=== PATIENT | male | born 1965 | race Caucasian/White ===

== ENCOUNTER 2016-11-25 15:51 | Emergency (ER) | payer OTHER, BC ==
[~2016-11-25] VITALS: Ht 190.5 cm; Wt 120.2 kg
[2016-11-25] MEDS ORDERED: LIDOCAINE 2% 20 ML (XYLOCAINE) VIAL ONE (16:06)
[2016-11-25] MEDS ORDERED: LIDOCAINE 2% 20 ML (XYLOCAINE) VIAL INJ ONE (16:15)
--- NOTE | 2016-11-25 16:42 | ED Upper Extremity ---
General Chief Complaint: Laceration Stated Complaint: L HAND FINGER LAC Nursing Triage Note: c/o laceration to pad of left 4th finger. Pt cut finger on a piece of metal at work Nursing Sepsis Screen: No Definite Risk Source: patient Exam Limitations: no limitations History of Present Illness Time seen by provider: 16:36 Initial Comments Sent to ER from [facility] urgent care with a skin avulsion to the pad of the left ring finger. This occurred while at work at [employer] cutting it on a piece of sheet metal at work. Tetanus is up-to-date in the last 5 years. Onset: just prior to arrival Severity: moderate Pain/Injury Location: left 4th finger Allergies and Home Medications Allergies Coded Allergies: No Known Drug Allergies (Unverified , 11/25/16) Constitutional: see HPI EENTM: see HPI Respiratory: no symptoms reported Cardiovascular: no symptoms reported Genitourinary: no symptoms reported Musculoskeletal: no symptoms reported Skin: no symptoms reported Psychiatric/Neurological: No Symptoms Reported Past Wlkvrmb-[id number]-[id number] Hx Patient Social History Alcohol Use: Denies Use Recreational Drug Use: No Smoking Status: Current Everyday Smoker Recent Foreign Travel: No Contact w/Someone Who Travel: No Recent Infectious Disease Expo: No Recent Hopitalizations: No Physical Abuse Screen: No Sexual Abuse: No Surgeries HX Surgeries: Yes (dental extraction) Respiratory Hx Respiratory Disorders: No Cardiovascular Hx Cardiac Disorders: No Neurological Hx Neurological Disorders: No Reproductive System Hx Reproductive Disorders: No Genitourinary Hx Genitourinary Disorders: No Gastrointestinal Hx Gastrointestinal Disorders: No Musculoskeletal Hx Musculoskeletal Disorders: No Endocrine Hx Endocrine Disorders: No HEENT HX ENT Disorders: No Cancer Hx Cancer: No Psychosocial Hx Psychiatric Problems: No Integumentary HX Skin/Integumentary Disorder: No Blood Transfusions Hx Blood Disorders: No Physical Exam Vital Signs Vital Sign - Last 12Hours 11/25/16 16:15 Temp 98.1 Pulse 80 Resp 16 B/P 113/80 Pulse Ox 99 O2 Delivery Room Air Capillary Refill : Less Than 3 Seconds General Appearance: WD/WN no apparent distress HEENT: PERRL/EOMI normal ENT inspection Neck: non-tender full range of motion Respiratory: no respiratory distress no accessory muscle use Gastrointestinal: normal bowel sounds non tender soft Elbow/Forearm: normal inspection, non-tender, no evidence of injury Wrist: Yes normal inspection, Yes non-tender Hand: Left, laceration (there is a skin avulsion/flap to the pad of the left ring finger. The pad remains attached distally. Depth is to the subcutaneous tissues but there is no visualized bone or tendon and flexion ability to remain intact.) Neurologic/Tendon: normal sensation normal motor functions normal tendon functions Neurologic/Psychiatric: alert normal mood/affect oriented x 3 Skin: normal color warm/dry Laceration Repair : Wound Location: Upper Extremities Wound Length (cm): 2 Wound's Depth, Shape: sub Q Wound Explored: clean Suture: Ethlion Suture Size: 5-0 Number of Sutures: 10 Layer Closure?: 1 Number Deep Layer Sutures: 0 Progress Digital block done using 5 mL of plain 2 percent lidocaine without epinephrine. Wound then scrubbed with chlorhexidine/saline solution and irrigated with 50 mL of the same. The pad/flap of skin was then folded back in place and sutured in place using 10 simple interrupted sutures size 5-0 Ethilon. The pad is blanched appearing compared to surrounding tissues. I did advise the patient this flap may the tissues beneath will granulate in healing by secondary intention if that were the case. He'll return to the emergency room in 10 days to have the stitches removed. Progress/Results/Core Measures Results/Orders My Orders Orders-ZOLTAN STOREY APRN Lidocaine 2% Injection 20 Ml (Xylocaine (11/25/16 16:15) Medications Given in ED Current Medications Medications Dose Ordered Sig/Chevy Route Start Time Stop Time Status Last Admin Dose Admin Lidocaine HCl 20 ml ONCE ONCE INJ 11/25/16 16:15 11/25/16 16:16 DC 11/25/16 16:15 20 ML Vital Signs/I&O Vital Sign - Last 12Hours 11/25/16 16:15 Temp 98.1 Pulse 80 Resp 16 B/P 113/80 Pulse Ox 99 O2 Delivery Room Air Blood Pressure Mean: 91 Departure Impression Impression: Primary Impression: Avulsion of fingertip Qualified Code: S61.209A - Unspecified open wound of unspecified finger without damage to nail, initial encounter Disposition: 01 HOME, SELF-CARE Condition: Stable Departure-Patient Inst. Decision time for Depature: 16:40 Referrals: NO,LOCAL PHYSICIAN (PCP/Family) Primary Care Physician Patient Instructions: Laceration Repair With Stitches (DC) Add. Discharge Instructions: 1. Antibiotic as directed 2. Return to ER for any redness, swelling or intolerable pain or for any concerning appearance of the wound 2. Change the dressing daily. Keep clean dry and covered today. Starting tomorrow you may wash it gently twice daily living water run over it but do not scrub. Keep it covered with the protector while you're at work 3. Return to the emergency room in 10 days to have the stitches removed in no charge All discharge instructions reviewed with patient and/or family. Voiced understanding. Scripts Cephalexin (Keflex)500 Mg Ethaury331 Mg PO Q4H #28 CAP Prov:ZOLTAN STOREY APRN 11/25/16 Hydrocodone/Acetaminophen ([place] 5-325 Tablet)1 Each Tablet1 Each PO Q4H PRN PAIN #10 TAB Prov:ZOLTAN STOREY APRN 11/25/16 ZOLTAN STOREY APRN Nov 25, 2016 16:41
[2016-11-25] MEDS ORDERED: HYDR-757 PO (16:43)
[2016-11-25] MEDS ORDERED: CEPH-507 PO (16:43)
[2016-11-25 17:05] VITALS: BP 110/80
== END 2016-11-25 17:05 | disposition home or self-care (01) ==
LOC: ER 15:54
DX: S61.215A Laceration without foreign body of left ring finger without damage to nail, initial encounter (principal); F17.210 Nicotine dependence, cigarettes, uncomplicated; W45.8XXA Other foreign body or object entering through skin, initial encounter; Y92.59 Other trade areas as the place of occurrence of the external cause; Y99.0 Civilian activity done for income or pay
CPT/HCPCS: 12001; 29130

== ENCOUNTER 2016-12-04 15:56 | Emergency (ER) | payer OTHER, BC ==
[~2016-12-04] VITALS: Ht 182.9 cm; Wt 102.1 kg
[~2016-12-04 15:56] MED LIST: CEPH-507 PO; HYDR-757 PO
[2016-12-04 16:35] VITALS: BP 147/91
== END 2016-12-04 16:35 | disposition home or self-care (01) ==
LOC: EDUNIT# 15:56 → EEVIPCON 15:56 → ER 15:56
DX: S61.215D Laceration without foreign body of left ring finger without damage to nail, subsequent encounter (principal)

== ENCOUNTER 2016-12-09 16:38 | Emergency (ER) | payer OTHER, BC ==
[~2016-12-09] VITALS: Ht 190.5 cm; Wt 120.2 kg
--- OUTSIDE RECORDS SUMMARY | 2016-12-09 16:42 | XMS REPORT | Continuity of Care Document ---
Author Author [facility] Organization [facility] Address Unknown Phone Unavailable Care Team Providers Care General Scrap Worker Name Role Phone NO, LOCAL PHYSICIAN PCP Unavailable Insurance Providers Payer Name Policy Number Subscriber Name Relationship [place] [employer] [id number] Shlomo Au 18 Self / Same As Patient [facility] [id number] Shlomo Au 18 Self / Same As Patient Advance Directives Directive Response Recorded Date/Time Advance Directives No 12/04/16 4:25pm Problems Active Problems Medical Problem Onset Date Status Avulsion of fingertip Unknown Acute Medications Current Home Medications Medication Dose Units Route Directions Days/Qty Instructions Start Date Hydrocodone/Acetaminophen 1 Each 1 Each Oral Every 4HRS as needed for Pain 10 11/25/16 Cephalexin 500 Mg 500 Mg Oral Every 4HRS 28 11/25/16 Social History Social History Problem Response Recorded Date/Time Alcohol Use Denies Use 12/04/2016 4:25pm Recreational Drug Use No 12/04/2016 4:25pm Recent Foreign Travel No 12/04/2016 3:57pm Recent Hopitalizations No 11/25/2016 4:18pm Hospital Discharge Instructions No hospital discharge instructions. Plan of Care Discharge Date 12/04/16 4:35pm Disposition 01 HOME, SELF-CARE Condition at Discharge Improved Instructions/Education Provided SUTURE REMOVAL-UNCOMPLICATED Prescriptions See Medication Section Referrals NO,LOCAL PHYSICIAN - Primary Care Physician Functional Status No functional status results. Allergies, Adverse Reactions, Alerts No known allergies. Immunizations No immunization records. Vital Signs Acute Vital Signs Vital Response Date/Time Temperature (Fahrenheit) 98.1 degrees F (97.6 - 99.5) 12/04/2016 4:35pm Temperature (Calculated Celsius) 36.93406 degrees C (36.4 - 37.5) 12/04/2016 4:35pm Temperature Source Tympanic 12/04/2016 4:35pm Pulse Rate (adult) 75 bpm (60 - 90) 12/04/2016 4:35pm Respiratory Rate 16 bpm (12 - 24) 12/04/2016 4:35pm O2 Sat by Pulse Oximetry 100 % (88 - 100) 12/04/2016 4:35pm Blood Pressure 147/91 mm Hg 12/04/2016 4:35pm Blood Pressure Mean 91 mm Hg 11/25/2016 4:15pm Pain Numeric Pain Scale 3 12/04/2016 4:25pm Pain Intensity DD 12/04/2016 4:35pm Height (Feet) 6 feet 12/04/2016 4:25pm Height (Inches) 3 inches 11/25/2016 4:15pm Height (Calculated Centimeters) 182.114107 cm 12/04/2016 4:25pm Weight (Pounds) 225 pounds 12/04/2016 4:25pm Weight (Calculated Kilograms) 102.719881 kilograms 12/04/2016 4:25pm Capillary Refill Capillary Refill Less Than 3 Seconds 11/25/2016 4:15pm Height 6 ft 0 in Weight 225 lb Body Mass Index 30.5 kg/m^2 Results No known relevant diagnostic tests, laboratory data and/or discharge summary. Procedures No known history of procedures. Encounters Encounter Location Arrival/Admit Date Discharge/Depart Date Attending Provider Departed Emergency Room [facility] 12/04/16 3:56pm 12/04 4:35pm LUCILA BYERS MD Departed Emergency Room [facility] 11/25/16 3:54pm 11/25 5:05pm ZOLTAN STOREY APRN
[2016-12-09 17:04] VITALS: BP 133/79
== END 2016-12-09 17:04 | disposition home or self-care (01) ==
LOC: EDUNIT# 16:38 → ER 16:39
DX: S61.215D Laceration without foreign body of left ring finger without damage to nail, subsequent encounter (principal)